=== PATIENT | male | born 1995 ===

== ENCOUNTER 2021-08-19 09:21 | Emergency (ER) | payer OTHER ==
[~2021-08-19] VITALS: Ht 152.4 cm; Wt 70.3 kg
[2021-08-19] MEDS ORDERED: MUCINEX DM ER1 EAC1 PO (13:00)
[2021-08-19] MEDS ORDERED: TESSALON PERLE100 M1 PO (13:00)
[2021-08-19] MEDS ORDERED: FLONASE ALLERG9.9 ML NASAL (13:00)
[2021-08-19] MEDS ORDERED: SYMBICORT 16010.2 GM IH (13:00)
== END 2021-08-19 13:12 ==
LOC: ER 09:21
DX: J06.9 Acute upper respiratory infection, unspecified (principal); Z03.818 Encounter for observation for suspected exposure to other biological agents ruled out